=== PATIENT | female | born 1955 | race African-American/Black ===

== ENCOUNTER 2019-05-08 13:56 | Observation (INO) | payer OTHER ==
--- NOTE | 2019-05-08 14:14 | PDOC ---
History of Present Illness - General Chief Complaint: Chest Pain Stated Complaint: CHEST PAIN Time Seen by Provider: 05/08/19 14:06 - History of Present Illness Initial Comments: 05/08/19 14:25 63 yo F PMH HTN, HLD, triscuspid valve replacement in 2013 s/p [employer] AICD in 2014 on warfarin, h/o DVT while smoking and on control , presenting with L sided chest pain. Reports first episode last night, sharp, intermittent, non-exertional, without N/V, SOB, diaphoresis, lasting minutes at a time. Has had 6 total episodes since last night, never had these before, which led her to come to the ED. Patient reports having her metoprolol recently increased after her device was interrogated and she was found to be having palpitations. Specifically denies SOB, N/V, abd pain, fevers/chills, constipation/diarrhea, FALL , leg swelling, palpitations, recent illness, sick contacts, or recent travel. Past History - Past Medical History Allergies/Adverse Reactions: Allergies Allergy/AdvReac Type Severity Reaction Status Date / Time No Known Drug Allergies Allergy Verified 05/08/19 14:11 Home Medications: Ambulatory Orders Amlodipine Besylate [Norvasc -] 5 mg PO DAILY 05/08/19 Aspirin [ASA -] 81 mg PO DAILY 05/08/19 Atorvastatin Ca [Lipitor] 10 mg PO HS 05/08/19 Furosemide 20 mg PO DAILY 05/08/19 Irbesartan 75 mg PO DAILY 05/08/19 Latanoprost 1 drop OP DAILY 05/08/19 Metoprolol Succinate [Toprol Xl] 150 mg PO DAILY 05/08/19 Warfarin Na [Coumadin] 7.5 mg PO HS 05/08/19 Anemia: No Asthma: No Cancer: No Cardiac Disorders: No CVA: No COPD: No CHF: No Dementia: No Diabetes: No GI Disorders: No Disorders: No HTN: No Hypercholesterolemia: No Liver Disease: No Seizures: No Thyroid Disease: No - Surgical History Abdominal Surgery: No Appendectomy: No Cardiac Surgery: No Cholecystectomy: No Lung Surgery: No Neurologic Surgery: No Orthopedic Surgery: No - Psycho Social/Smoking Cessation Hx Smoking Status: Yes Smoking History: Current every day smoker Have you smoked in the past 12 months: Yes Number of Cigarettes Smoked Daily: 5 Hx Alcohol Use: No Drug/Substance Use Hx: No Substance Use Type: None Hx Substance Use Treatment: No Review of Systems - Review of Systems Able to Perform ROS?: Yes Comments:: 05/08/19 14:54 GENERAL/CONSTITUTIONAL: No fever or chills. No weakness. HEAD, EYES, EARS, NOSE AND THROAT: No change in vision. No ear pain or discharge. No sore throat. CARDIOVASCULAR: L sided chest pain, no shortness of breath. RESPIRATORY: No cough, wheezing, or hemoptysis. GASTROINTESTINAL: No nausea, vomiting, diarrhea or constipation. GENITOURINARY: No dysuria, frequency, or change in urination. MUSCULOSKELETAL: No joint or muscle swelling or pain. No neck or back pain. SKIN: No rash NEUROLOGIC: No headache, vertigo, loss of consciousness, or change in strength/ sensation. ENDOCRINE: No increased thirst. No abnormal weight change. HEMATOLOGIC/LYMPHATIC: No anemia, easy bleeding, or history of blood clots. ALLERGIC/IMMUNOLOGIC: No hives or skin allergy *Physical Exam - Physical Exam Comments: 05/08/19 14:58 Gen: well-developed, well-nourished, NAD Neuro: AAOX4, CN II-XII intact, FTN intact, EOMI, PERRLA, 5/5 strength, SILT HEENT: atraumatic, normocephalic Neck: trachea midline, supple CV: regular rate, regular rhythm, no murmurs, rubs, or gallops Pulm: CTA b/l, no wheezing Abd: soft, non-distended, non-tender MSK: full ROM, intact pulses Extr: no edema, no deformities Skin: warm, dry Heart Score/ECG Review - History History: Slightly suspicious - Electrocardiogram EKG: Non specific repolarization disturbance - Age Age: 45-65 - Risk Factors Risk Factors Heart Score: Yes Hx Hypercholesterolemia, Yes Hx Hypertension, Yes Hx Obesity Based on the list above the patient has:: >/=3 risk factors or Hx atherosclerotic disease - Troponin Troponin: </= normal limit - Score Heart Score - Total: 4 ED Treatment Course - LABORATORY CBC & Chemistry Diagram: 05/09/19 08:57 05/09/19 08:57 Medical Decision Making - Medical Decision Making 05/08/19 14:12 Concern for ACS vs atypical chest pain. - CBC, CMP, EKG, CXR, trop - coags - reassess EKG normal sinus at 64 bpm with sinus arrhythmia, poor baseline quality, LVH 05/08/19 15:02 CXR: slight prominence of the right hilum with some atelectasis or horizontal fissure thickening 05/08/19 16:33 Elevated trop to 0.07. Heart score of 4, will admit to tele obs. Discharge - Discharge Information Problems reviewed: Yes Clinical Impression/Diagnosis: Chest pain, Elevated troponin I level - Follow up/Referral - Patient Discharge Instructions - Post Discharge Activity
[2019-05-08 15:35] LABS: BASO % 1.2 % (0-2.0); EOS % 0.4 % (0-4.5); HEMATOCRIT 44.7 % (32.4-45.2); HEMOGLOBIN 14.8 GM/dL (10.7-15.3); LYMPH % 33.1 % (8-40); MCH 31.3 pg (25.7-33.7); MEAN CELL VOLUME 94.7 fl (80-96); MEAN PLT VOLUME 6.9 fl (7.5-11.1); MONO % 8.1 % (3.8-10.2); NEUT % 57.2 % (42.8-82.8); PLATELET COUNT 418 K/MM3 (134-434); RBC 4.72 M/mm3 (3.60-5.2); RDW 13.8 % (11.6-15.6)
--- NOTE | 2019-05-08 15:43 | PDOC ---
Documentation entered by Benji Major SCRIBE, acting as scribe for Arelis Nguyen MD. Arelis Nguyen MD: This documentation has been prepared by the Moriah peterson Xhesika, SCRIBE, under my direction and personally reviewed by me in its entirety. I confirm that the documentation accurately reflects all work, treatment, procedures, and medical decision making performed by me. Attending Attestation - Resident Resident Name: Kimberly Louis - ED Attending Attestation I have performed the following: I have examined & evaluated the patient, The case was reviewed & discussed with the resident, I agree w/resident's findings & plan, Exceptions are as noted - HPI HPI: 05/08/19 14:40 The patient is a 63 year old female with a significant PMH of HTN, HLD, and tricuspid valve replacement (2013), pacemaker (2014), bronchitis (on chronic inhalers) who presents to the emergency department for sudden onset chest pain while sitting on the couch. Pt describes the pain as sharp, intermittent, located under her left breast, lasting a couple of minutes before resolving. Pt denies any alleviating or aggravating factors. Patient denies leg swelling, shortness of breath, headache and dizziness. Denies fever, chills, cough, nausea , vomiting, diarrhea and constipation. Denies dysuria, frequency, urgency and hematuria. Allergies: NKDA - Physicial Exam PE: 05/08/19 15:38 Awake alert no acute distress lungs are clear bilaterally heart is regular without murmurs rubs or gallops abdomen is soft nontender extremities are warm well perfused there is no noted peripheral edema or calf tenderness patient has 2+ symmetric distal pulses neurologically she is awake alert and oriented x3 - Medical Decision Making 05/08/19 15:38 [id number] female history of hypertension valve replacement previous DVT PE many years ago while on control here today complaining of left-sided chest pressure. Patient describes as a tightness under her left breast no radiation no associated shortness of breath no nausea vomiting no diaphoresis happened while at rest relaxing started this a.m. no history of similar pain does have a food counter attendant Dr. Maldonado doc who she last saw few months ago. Patient has had a stress test several years ago which was reportedly Patient has a normal exam Differential includes ACS, infection, patient has a history of previous DVT PE however was provoked while smoking on control many many years ago she is also currently anticoagulated with an artificial valve plan CBC CMP troponin patient will likely require admission due to her multiple risk factors Heart Score/ECG Review #1 ECG reviewed & interpreted by me at: 15:43 General ECG Interpretation: Sinus Rhythm, Normal Rate, Normal Intervals, No acute ischemic changes (TWI III, AVF. left axis.) Compared to previous ECG there are: No significant change (comparison 09/20/11)
[2019-05-08 15:54] LABS: PROTHROMBIN TIME (PATIENT) 52.4 SEC (9.7-13.0)
[2019-05-08 15:56] LABS: ACTIVATED PTT 44.2 SECONDS (25.2-36.5)
[2019-05-08] MEDS ORDERED: ASPIRIN 325 MG TABLET PO ONE (16:32)
[2019-05-08 16:34] LABS: ALBUMIN 3.9 g/dl (3.4-5.0); BILIRUBIN,TOTAL 0.6 mg/dL (0.2-1); BLOOD UREA NITROGEN 6.7 mg/dL (7-18); CREATININE 0.7 mg/dL (0.55-1.3); MAGNESIUM 1.8 mg/dL (1.8-2.4); N-TERMINAL BNP 214.4 pg/ml (5-125); PHOSPHOROUS 2.7 mg/dL (2.5-4.9); POTASSIUM 3.3 mmol/L (3.5-5.1); TOT PROT 8.5 g/dl (6.4-8.2)
[2019-05-08] MEDS ORDERED: ASPIRIN 325 MG ENTERIC COATED TABLET (FP) ONE (16:52)
[2019-05-08] MEDS ORDERED: POTASSIUM CHLORIDE TABS 20 MEQ TABLET.ER (FP) PO ONE ×4 (17:01→17:50)
[2019-05-08 17:39] LABS: INR 4.37 (0.83-1.09)
--- NOTE | 2019-05-08 17:45 | HP ---
CHIEF COMPLAINT: left sided chest pain, non radiating PCP: HISTORY OF PRESENT ILLNESS: Patient is a 63 year old female with a past medical history of hypertension, hyperlipidemia, triscuspid valve replacement in 2013 s/p [employer] AICD in 2014 and atrial fibrillation? (reports she was put on warfarin for palpitations, but also has hx of DVT) and COPD. Patient presents to the ED with c/o of chest pain, left sided under her left breast, non radiating. She has no shortness of breath or dizziness, no jaw pain or any other discomfort. Chest pain started last night, continued until this morning which concerned her. She had a total of six episodes of chest pain "squeezing" and has never had this happen to her before. She follows with her private collar tacker who also monitors her INR. On admission her INR was 4.3 and she had a recent increase of warfarin from 5mg to 7.5mg due to low inr. She has her INR monitored weekly. ER course was notable for: (1) elevated INR 4.37 (took coumadin 7.5mg this morning. will hold coumadin) (2) trop 0.07, will continue to trend (3) potassium 3.3, repleted in the ED (4) EKG NSR at 64 bpm with sinus arrhythmia Recent Travel: none PAST MEDICAL/SURGICAL HISTORY: hypertension, hyperlipidemia, triscuspid valve replacement in 2013 s/p [employer] AICD in 2014 and atrial fibrillation ( on warfarin) and COPD. Social History: Smoking: quit 5 years ago Alcohol: socially Drugs: none reported Allergies No Known Drug Allergies Allergy (Verified 05/08/19 14:11) HOME MEDICATIONS: Home Medications Medication Instructions Recorded Amlodipine Besylate [Norvasc -] 5 mg PO DAILY 05/08/19 Aspirin [ASA -] 81 mg PO DAILY 05/08/19 Atorvastatin Ca [Lipitor] 10 mg PO HS 05/08/19 Furosemide 20 mg PO DAILY 05/08/19 Irbesartan 75 mg PO DAILY 05/08/19 Latanoprost 1 drop OP DAILY 05/08/19 Metoprolol Succinate [Toprol Xl] 150 mg PO DAILY 05/08/19 Warfarin Na [Coumadin] 7.5 mg PO HS 05/08/19 PHYSICAL EXAMINATION Vital Signs - 24 hr 05/08/19 05/08/19 05/08/19 14:12 15:29 17:18 Temperature 98.4 F Pulse Rate 67 Pulse Rate [ 67 Radial] Respiratory 20 20 Rate Blood Pressure 144/88 Blood Pressure 144/71 [Left Arm] O2 Sat by Pulse 96 97 96 Oximetry (%) GENERAL: Awake, alert, and fully oriented, in no acute distress. HEAD: Normal with no signs of trauma. EYES: Pupils equal, round and reactive to light, extraocular movements intact, sclera anicteric, conjunctiva clear. No lid lag. EARS, NOSE, THROAT: Ears normal, nares patent, oropharynx clear without exudates. Moist mucous membranes. NECK: Normal range of motion, supple without lymphadenopathy, JVD, or masses. LUNGS: Breath sounds equal, clear to auscultation bilaterally. No wheezes, and no crackles. No accessory muscle use. HEART: Regular rate and rhythm, normal S1 and S2 without murmur, rub or gallop. ABDOMEN: Soft, nontender, not distended, normoactive bowel sounds, no guarding, no rebound, no masses. No hepatomegaly or splenomegaly. MUSCULOSKELETAL: Normal range of motion at all joints. No bony deformities or tenderness. No CVA tenderness. UPPER EXTREMITIES: No peripheral edema. LOWER EXTREMITIES: No peripheral edema. NEUROLOGICAL: Cranial nerves II-XII intact. Normal speech. Normal gait. PSYCHIATRIC: Cooperative. Good eye contact. Appropriate mood and affect. SKIN: Warm, dry, normal turgor, no rashes or lesions noted, normal capillary refill. Laboratory Results - last 24 hr 05/08/19 05/08/19 05/08/19 15:20 15:20 15:20 WBC 7.0 RBC 4.72 Hgb 14.8 Hct 44.7 D MCV 94.7 MCH 31.3 MCHC 33.0 RDW 13.8 Plt Count 418 MPV 6.9 L Absolute Neuts (auto) 4.0 Neutrophils % 57.2 D Lymphocytes % 33.1 D Monocytes % 8.1 D Eosinophils % 0.4 D Basophils % 1.2 Nucleated RBC % 0 PT with INR INR PTT (Actin FS) Sodium 142 Potassium 3.3 L Chloride 105 Carbon Dioxide 32 Anion Gap 5 L BUN 6.7 L Creatinine 0.7 Est GFR (CKD-EPI)AfAm 108.38 Est GFR (CKD-EPI)NonAf 93.51 Random Glucose 104 Calcium 9.0 Phosphorus 2.7 Magnesium 1.8 Total Bilirubin 0.6 AST 20 ALT 31 Alkaline Phosphatase 100 Creatine Kinase 68 Troponin I 0.07 H B-Natriuretic Peptide 214.4 H Total Protein 8.5 H Albumin 3.9 05/08/19 17:30 WBC RBC Hgb Hct MCV MCH MCHC RDW Plt Count MPV Absolute Neuts (auto) Neutrophils % Lymphocytes % Monocytes % Eosinophils % Basophils % Nucleated RBC % PT with INR 52.40 H INR 4.37 H* PTT (Actin FS) 44.2 H Sodium Potassium Chloride Carbon Dioxide Anion Gap BUN Creatinine Est GFR (CKD-EPI)AfAm Est GFR (CKD-EPI)NonAf Random Glucose Calcium Phosphorus Magnesium Total Bilirubin AST ALT Alkaline Phosphatase Creatine Kinase Troponin I B-Natriuretic Peptide Total Protein Albumin ASSESSMENT/PLAN: Family Medical History Family History: Denies Problem List - Problem (1) Chest pain Assessment/Plan: chest pain overnight and this morning, none presently. ambulating in room w/o any discomfort significant cardiac history with ppm that was interrogated a few weeks ago trend troponins, first 0.07 monitor on tele cardiology consulted follows with Dr. Villa (collar tacker) Code(s): R07.9 - CHEST PAIN, UNSPECIFIED (2) Elevated INR Assessment/Plan: hold comadin for elevated inr. took coumadin 7.5mg this morning repeat inr in a.m. Code(s): R79.1 - ABNORMAL COAGULATION PROFILE (3) Elevated troponin I level Assessment/Plan: continue to trend Code(s): R79.89 - OTHER SPECIFIED ABNORMAL FINDINGS OF BLOOD CHEMISTRY (4) COPD (chronic obstructive pulmonary disease) Assessment/Plan: on home inhalers, but does not use it daily Code(s): J44.9 - CHRONIC OBSTRUCTIVE PULMONARY DISEASE, UNSPECIFIED (5) Prophylactic measure Assessment/Plan: fen po adequate monitor electrolyes low salt diet hold coumadin Code(s): Z29.9 - ENCOUNTER FOR PROPHYLACTIC MEASURES, UNSPECIFIED Visit type - Emergency Visit Emergency Visit: Yes ED Registration Date: 05/08/19 Care time: The patient presented to the Emergency Department on the above date and was hospitalized for further evaluation of their emergent condition. - New Patient This patient is new to me today: Yes Date on this admission: 05/08/19 - Critical Care Critical Care patient: No
[2019-05-08] MEDS ORDERED: ACETAMINOPHEN 325 MG TABLET (FP) PO PRN (19:27)
[2019-05-08 20:29] VITALS: BMI 30.6
[2019-05-08] MEDS ORDERED: ATORVASTATIN CA 10 MG TABLET (FP) PO SCH (22:00)
[2019-05-09 09:21] LABS: BASO % 0.7 % (0-2.0); HEMATOCRIT 39.5 % (32.4-45.2); HEMOGLOBIN 13.5 GM/dL (10.7-15.3); LYMPH % 45.2 % (8-40); MCH 31.9 pg (25.7-33.7); MCHC 34.2 g/dl (32.0-36.0); MEAN CELL VOLUME 93.3 fl (80-96); MEAN PLT VOLUME 6.8 fl (7.5-11.1); MONO % 6.8 % (3.8-10.2); NEUT % 46.3 % (42.8-82.8); PLATELET COUNT 371 K/MM3 (134-434); RBC 4.23 M/mm3 (3.60-5.2); WHITE BLOOD COUNT 6.9 K/mm3 (4.0-10.0)
[2019-05-09 09:31] LABS: PROTHROMBIN TIME (PATIENT) 61.7 SEC (9.7-13.0)
[2019-05-09] MEDS ORDERED: amLODIPine BESYLATE 5 MG TABLET (FP) PO SCH (10:00)
[2019-05-09] MEDS ORDERED: LOSARTAN POTASSIUM 25 MG TABLET PO SCH (10:00)
[2019-05-09] MEDS ORDERED: METOPROLOL SUCCINATE 100 MG, METOPROLOL SUCCINATE 50 MG PO SCH (10:00)
[2019-05-09] MEDS ORDERED: FUROSEMIDE 20 MG TABLET (FP) PO SCH (10:00)
[2019-05-09] MEDS ORDERED: ASPIRIN 81 MG CHEWABLE TABLETS PO SCH (10:00)
[2019-05-09 10:11] LABS: ALBUMIN 3.3 g/dl (3.4-5.0); BILIRUBIN,TOTAL 0.4 mg/dL (0.2-1); CALCIUM 8.9 mg/dL (8.5-10.1); CREATININE 0.6 mg/dL (0.55-1.3); POTASSIUM 3.5 mmol/L (3.5-5.1); TOT PROT 7.4 g/dl (6.4-8.2)
[2019-05-09 10:13] LABS: INR 5.14 (0.83-1.09)
--- NOTE | 2019-05-09 12:39 | EKG ---
Test Reason : Blood Pressure : / mmHG Vent. Rate : 064 BPM Atrial Rate : 064 BPM P-R Int : 122 ms QRS Dur : 098 ms QT Int : 400 ms P-R-T Axes : 041 -27 -19 degrees QTc Int : 412 ms POOR DATA QUALITY, INTERPRETATION MAY BE ADVERSELY AFFECTED NORMAL SINUS RHYTHM WITH SINUS ARRHYTHMIA POSSIBLE LEFT ATRIAL ENLARGEMENT LEFT VENTRICULAR HYPERTROPHY NONSPECIFIC ST AND T WAVE ABNORMALITY ABNORMAL ECG WHEN COMPARED WITH ECG OF 20-SEP-2011 00:32, MINIMAL CRITERIA FOR SEPTAL INFARCT ARE NO LONGER PRESENT NONSPECIFIC T WAVE ABNORMALITY, WORSE IN ANTEROLATERAL LEADS QT HAS SHORTENED Confirmed by ALIVIA RAGLAND MD ([id number]) on 05/09/2019 12:39:23 PM Referred By: Confirmed By:ALIVIA RAGLAND MD
--- NOTE | 2019-05-09 13:22 | CON.CARD ---
Consult Consult Specialty:: cardiology Referred by:: Melody Reason for Consultation:: chest pain - History of Present Illness Chief Complaint: chest pain History of Present Illness: The patient is a 63-year-old femal , ypertension,hyperlipidemia,dVT on Coumadin , status post tricuspid valve replacement 2014 status post ICD implantation, now admitted with chest pains at rest. The patient described several episodesof the pulsating discomfort in her chest.Symptoms lasted one to 2 seconds. They resolved spontaneously. The patient reports no such symptoms while walking. She is currently comfortable and symptom free. The patient stated that prior to her surgeryin 2013, cardiac catheterization revealed no coronary artery disease. - History Source History Provided By: Patient Limitations to Obtaining History: No Limitations - Past Medical History Cardio/Vascular: Yes: Deep Vein Thrombosis, HTN ...: No - Alcohol/Substance Use Hx Alcohol Use: No - Smoking History Smoking history: Current every day smoker Have you smoked in the past 12 months: Yes Aproximately how many cigarettes per day: 5 If you are a former smoker, when did you quit?: 2013 Home Medications - Allergies Allergies/Adverse Reactions: Allergies Allergy/AdvReac Type Severity Reaction Status Date / Time No Known Drug Allergies Allergy Verified 05/08/19 14:11 - Home Medications Home Medications: Ambulatory Orders Amlodipine Besylate [Norvasc -] 5 mg PO DAILY 05/08/19 Aspirin [ASA -] 81 mg PO DAILY 05/08/19 Atorvastatin Ca [Lipitor] 10 mg PO HS 05/08/19 Furosemide 20 mg PO DAILY 05/08/19 Irbesartan 75 mg PO DAILY 05/08/19 Latanoprost 1 drop OP DAILY 05/08/19 Metoprolol Succinate [Toprol Xl] 150 mg PO DAILY 05/08/19 Warfarin Na [Coumadin] 7.5 mg PO HS 05/08/19 Review of Systems - Review of Systems Constitutional: reports: No Symptoms Eyes: reports: No Symptoms HENT: reports: No Symptoms Neck: reports: No Symptoms Cardiovascular: reports: Chest Pain Respiratory: reports: No Symptoms Gastrointestinal: reports: No Symptoms Genitourinary: reports: No Symptoms Breasts: reports: No Symptoms Reported Musculoskeletal: reports: Muscle Cramps Integumentary: reports: No Symptoms Neurological: reports: No Symptoms Endocrine: reports: No Symptoms Hematology/Lymphatic: reports: No Symptoms Psychiatric: reports: No Symptoms Vital Signs: Vital Signs Temperature 98 F 05/09/19 09:16 Pulse Rate 60 05/09/19 09:16 Respiratory Rate 20 05/09/19 09:16 Blood Pressure 126/79 05/09/19 09:16 O2 Sat by Pulse Oximetry (%) 98 05/09/19 10:00 Constitutional: Yes: Well Nourished, No Distress, Calm Eyes: Yes: WNL, Conjunctiva Clear, EOM Intact HENT: Yes: WNL, Atraumatic, Normocephalic Neck: Yes: WNL, Supple, Trachea Midline Respiratory: Yes: WNL, Regular, CTA Bilaterally Gastrointestinal: Yes: WNL, Normal Bowel Sounds, Soft Renal/: Yes: WNL Cardiovascular: Yes: WNL, Regular Rate and Rhythm JVD: No Carotid Bruit: No PMI: Non-Displaced Heart Sounds: Yes: S1, S2 Murmur: Yes: Systolic Murmur, Grade 2 Musculoskeletal: Yes: Muscle Pain Extremities: Yes: WNL Edema: No Peripheral Pulses WNL: Yes Peripheral Pulses: 2+ Left Carotid, 2+ Right Carotid, 2+ Left Femoral, 2+ Right Femoral, 2+ Left Popliteal, 2+ Right Popliteal, 2+ Left Doralis Pedis, 2+ Right Dorsalis Pedis Integumentary: Yes: WNL Neurological: Yes: WNL, Alert, Oriented ...Motor Strength: WNL Psychiatric: Yes: WNL, Alert, Oriented - Other Data Labs, Other Data: CBC, BMP 05/09/19 08:57 05/09/19 08:57 INR, PTT INR 5.14 (0.83-1.09) H* 05/09/19 08:57 Troponin, BNP 05/08/19 05/08/19 05/08/19 15:20 15:20 21:45 Troponin I 0.07 H 0.06 H B-Natriuretic Peptide 214.4 H 05/09/19 02:11 Troponin I 0.08 H B-Natriuretic Peptide Troponin, BNP 05/08/19 05/08/19 05/08/19 15:20 15:20 21:45 Troponin I 0.07 H 0.06 H B-Natriuretic Peptide 214.4 H 05/09/19 02:11 Troponin I 0.08 H B-Natriuretic Peptide Assessment/Plan The patient is a 63-year-old femal , ypertension,hyperlipidemia,dVT on Coumadin , status post tricuspid valve replacement 2013 status post ICD implantation, now admitted with chest pains at rest. The patient described several episodesof the pulsating discomfort in her chest.Symptoms lasted one to 2 seconds. They resolved spontaneously. The patient reports no such symptoms while walking. She is currently comfortable and symptom free. The patient stated that prior to her surgeryin 2013, cardiac catheterization revealed no coronary artery disease. There is no evidence of ischemia nor acute coronary syndrome.noncardiac chest pains. Most likely of musculoskeletal origin. The patient is in sinus rhythm. There are no acute ECG changes. There is no need for further cardiac monitoring at this point. No need for further cardiac workup at this point. Please arrange for an outpatient appointment with her own sales compensation analyst. please do not hesitate to call us PRN.
[2019-05-09 14:23] VITALS: BP 129/91; PULSE 74; TEMP 98.1
--- NOTE | 2019-05-09 15:16 | DS ---
Physical Exam: SUBJECTIVE: Patient seen and examined OBJECTIVE: Patient is a 63 year old female with a past medical history of hypertension, hyperlipidemia, triscuspid valve replacement in 2014 s/p [employer] in 2015 and atrial fibrillation? (reports she was put on warfarin for palpitations, but also has hx of DVT) and COPD. Patient presents to the ED with c/o of chest pain, left sided under her left breast, non radiating. She has no shortness of breath or dizziness, no jaw pain or any other discomfort. Chest pain started yesterday. She had a total of six episodes of chest pain "squeezing" and has never had this happen to her before. She follows with her private environmental studies department chair who also monitors her INR. On admission her INR was 4.3 and she had a recent increase of warfarin from 5mg to 7.5mg due to low inr. She took a dose of coumadin 7.5mg earlier in the day before coming to the hospital. She has her INR monitored weekly and is scheduled to have it checked tomorrow. her INR is 5. and she is instructed to not take any more coumadin. She has a follow up appointment with her environmental studies department chair tomorrow for an INR follow up and when to resume the coumadin. No signs of bleeding, vitals stable. She has good follow up and will see her environmental studies department chair tomorrow, therefore will discharge her home with cardiology follow up. Period Temp Pulse Resp BP Sys/Quach Pulse Ox Last 24 Hr 97.6 F-98.1 F 60-74 18-20 114-145/64-91 96-98 PHYSICAL EXAM GENERAL: The patient is awake, alert, and fully oriented, in no acute distress. HEAD: Normal with no signs of trauma. EYES: PERRL, extraocular movements intact, sclera anicteric, conjunctiva clear. ENT: Ears normal, nares patent, oropharynx clear without exudates, moist mucous membranes. NECK: Trachea midline, full range of motion, supple. LUNGS: Breath sounds equal, clear to auscultation bilaterally, no wheezes, no crackles, no accessory muscle use. HEART: Regular rate and rhythm, S1, S2 without murmur, rub or gallop. ABDOMEN: Soft, nontender, nondistended, normoactive bowel sounds, no guarding, no rebound, no hepatosplenomegaly, no masses. EXTREMITIES: 2+ pulses, warm, well-perfused, no edema. NEUROLOGICAL: Cranial nerves II through XII grossly intact. Normal speech, gait not observed. PSYCH: Normal mood, normal affect. SKIN: Warm, dry, normal turgor, no rashes or lesions noted. LABS Laboratory Results - last 24 hr 05/08/19 05/08/19 05/08/19 15:20 15:20 15:20 WBC 7.0 RBC 4.72 Hgb 14.8 Hct 44.7 D MCV 94.7 MCH 31.3 MCHC 33.0 RDW 13.8 Plt Count 418 MPV 6.9 L Absolute Neuts (auto) 4.0 Neutrophils % 57.2 D Lymphocytes % 33.1 D Monocytes % 8.1 D Eosinophils % 0.4 D Basophils % 1.2 Nucleated RBC % 0 PT with INR INR PTT (Actin FS) Sodium 142 Potassium 3.3 L Chloride 105 Carbon Dioxide 32 Anion Gap 5 L BUN 6.7 L Creatinine 0.7 Est GFR (CKD-EPI)AfAm 108.38 Est GFR (CKD-EPI)NonAf 93.51 Random Glucose 104 Calcium 9.0 Phosphorus 2.7 Magnesium 1.8 Total Bilirubin 0.6 AST 20 ALT 31 Alkaline Phosphatase 100 Creatine Kinase 68 Troponin I 0.07 H B-Natriuretic Peptide 214.4 H Total Protein 8.5 H Albumin 3.9 05/08/19 05/08/19 05/09/19 17:30 21:45 02:11 WBC RBC Hgb Hct MCV MCH MCHC RDW Plt Count MPV Absolute Neuts (auto) Neutrophils % Lymphocytes % Monocytes % Eosinophils % Basophils % Nucleated RBC % PT with INR 52.40 H INR 4.37 H* PTT (Actin FS) 44.2 H Sodium Potassium Chloride Carbon Dioxide Anion Gap BUN Creatinine Est GFR (CKD-EPI)AfAm Est GFR (CKD-EPI)NonAf Random Glucose Calcium Phosphorus Magnesium Total Bilirubin AST ALT Alkaline Phosphatase Creatine Kinase Troponin I 0.06 H 0.08 H B-Natriuretic Peptide Total Protein Albumin 05/09/19 05/09/19 05/09/19 08:57 08:57 08:57 WBC 6.9 RBC 4.23 Hgb 13.5 Hct 39.5 MCV 93.3 MCH 31.9 MCHC 34.2 RDW 14.0 Plt Count 371 MPV 6.8 L Absolute Neuts (auto) 3.2 Neutrophils % 46.3 Lymphocytes % 45.2 H D Monocytes % 6.8 Eosinophils % 1.0 D Basophils % 0.7 Nucleated RBC % 0 PT with INR 61.70 H INR 5.14 H* PTT (Actin FS) Sodium 140 Potassium 3.5 Chloride 107 Carbon Dioxide 27 Anion Gap 6 L BUN 9.0 Creatinine 0.6 Est GFR (CKD-EPI)AfAm 114.02 Est GFR (CKD-EPI)NonAf 98.38 Random Glucose 124 H Calcium 8.9 Phosphorus Magnesium Total Bilirubin 0.4 AST 23 ALT 28 Alkaline Phosphatase 86 Creatine Kinase Troponin I B-Natriuretic Peptide Total Protein 7.4 Albumin 3.3 L HOSPITAL COURSE: Date of Admission:05/08/19 Date of Discharge: 05/09/19 Minutes to complete discharge: 45 Discharge Summary Problems reviewed: Yes Reason For Visit: ELEVATED TROPONIN I LEVEL Current Active Problems COPD (chronic obstructive pulmonary disease) (Acute) Chest pain (Acute) Elevated INR (Acute) Elevated troponin I level (Acute) Prophylactic measure (Acute) Condition: Improved - Instructions Diet, Activity, Other Instructions: Mrs Singh: Your cardiac workup is negative. Please see your environmental studies department chair tomorrow and have your INR repeated. DO NOT TAKE ANY MORE COUMADIN YOUR INR IS ABOVE GOAL. Your INR is 5 which puts you at risk for bleeding. HOLD coumadin until you see your environmental studies department chair tomorrow and discuss lowering dose of Coumadin. Thank you for allowing us to care for you. Referrals: ON STAFF,NOT [Primary Care Provider] - Disposition: HOME - Home Medications Comprehensive Discharge Medication List: Ambulatory Orders Amlodipine Besylate [Norvasc -] 5 mg PO DAILY 05/08/19 Aspirin [ASA -] 81 mg PO DAILY 05/08/19 Atorvastatin Ca [Lipitor] 10 mg PO HS 05/08/19 Furosemide 20 mg PO DAILY 05/08/19 Irbesartan 75 mg PO DAILY 05/08/19 Latanoprost 1 drop OP DAILY 05/08/19 Metoprolol Succinate [Toprol XL -] 150 mg PO DAILY tab.sr.24h 05/09/19 Problem List - Problems (1) Chest pain Assessment/Plan: resolved chest pain, cardiac workup negative cleared by cardiology for dc home with cardiology follow up Code(s): R07.9 - CHEST PAIN, UNSPECIFIED (2) Elevated INR Assessment/Plan: inr elevated 4.5 on day of admission and she had just taken coumadin 7.5mg on morning of admission. she will have her inr checked tomorrow with her environmental studies department chair taught patient to monitor for signs of bleeding and since she has good outpatient follow up, will d/c her to her private environmental studies department chair who will instruct her when to resume coumadin. Code(s): R79.1 - ABNORMAL COAGULATION PROFILE (3) Elevated troponin I level Assessment/Plan: continue to trend Code(s): R79.89 - OTHER SPECIFIED ABNORMAL FINDINGS OF BLOOD CHEMISTRY (4) COPD (chronic obstructive pulmonary disease) Assessment/Plan: on home inhalers, but does not use it daily Code(s): J44.9 - CHRONIC OBSTRUCTIVE PULMONARY DISEASE, UNSPECIFIED (5) Prophylactic measure Assessment/Plan: discharge home. follow up with Dr. Villa (environmental studies department chair) tomorrow Code(s): Z29.9 - ENCOUNTER FOR PROPHYLACTIC MEASURES, UNSPECIFIED This patient is new to me today: No Emergency Visit: Yes ED Registration Date: 05/08/19 Care time: The patient presented to the Emergency Department on the above date and was hospitalized for further evaluation of their emergent condition. Critical Care patient: No - Discharge Referral Referred to [facility] No
== END 2019-05-09 15:23 | disposition home or self-care (01) ==
LOC: JER 13:56 → JERBED 16:04 → J4S 18:18
PROVIDERS: ADMIT Hospitalist; ATTEND Nurse Practitioner Family
DX: R07.89 Other chest pain (principal); R77.8 Other specified abnormalities of plasma proteins; I10 Essential (primary) hypertension; E78.5 Hyperlipidemia, unspecified; F17.210 Nicotine dependence, cigarettes, uncomplicated; R79.1 Abnormal coagulation profile; J44.9 Chronic obstructive pulmonary disease, unspecified; E66.9 Obesity, unspecified; Z68.30 Body mass index [BMI] 30.0-30.9, adult; Z29.8 Encounter for other specified prophylactic measures; Z86.718 Personal history of other venous thrombosis and embolism; Z79.01 Long term (current) use of anticoagulants; Z95.810 Presence of automatic (implantable) cardiac defibrillator; Z95.2 Presence of prosthetic heart valve; Z79.82 Long term (current) use of aspirin; Z98.61 Coronary angioplasty status
CPT/HCPCS: 36415; 71045-TC-FY; 76604; 80053; 82550; 83735; 83880; 84100; 84484; 85025; 85610; 85730; 93005; 93010; 93308; 99285-25; G0378

== ENCOUNTER 2020-06-17 17:57 | Inpatient (IN) | payer OTHER ==
[2020-06-17 19:30] VITALS: BMI 28.1
[2020-06-17] MEDS ORDERED: ONDANSETRON 4 MG/2 ML VIAL IVPB ONE (19:52)
[2020-06-17] MEDS ORDERED: ONDANSETRON 4 MG/2 ML VIAL ONE (20:35)
[2020-06-17 21:05] LABS: BASO % 0.4 % (0-2.0); EOS % 0.3 % (0-4.5); HEMATOCRIT 43.9 % (32.4-45.2); HEMOGLOBIN 14.7 GM/dL (10.7-15.3); LYMPH % 10.8 % (8-40); MCH 31.3 pg (25.7-33.7); MCHC 33.5 g/dl (32.0-36.0); MEAN CELL VOLUME 93.2 fl (80-96); MEAN PLT VOLUME 7.7 fl (7.5-11.1); MONO % 5.3 % (3.8-10.2); NEUT % 83.2 % (42.8-82.8); PLATELET COUNT 385 K/MM3 (134-434); RBC 4.71 M/mm3 (3.60-5.2); RDW 15.9 % (11.6-15.6); WHITE BLOOD COUNT 10.9 K/mm3 (4.0-10.0)
[2020-06-17 21:13] LABS: CHLORIDE 102 mmol/L (98-107); SODIUM 133 mmol/L (136-145)
[2020-06-17 21:16] LABS: CALCIUM 8.8 mg/dL (8.5-10.1)
[2020-06-17 21:17] LABS: ALBUMIN 3.7 g/dl (3.4-5.0); BLOOD UREA NITROGEN 17.6 mg/dL (7-18); CO2 29 mmol/L (21-32); GLUCOSE,RANDOM 177 mg/dL (74-106)
[2020-06-17 21:20] LABS: INR 1.9 (0.83-1.09); PROTHROMBIN TIME (PATIENT) 22.9 SEC (9.7-13.0); SGOT/AST 60 U/L (15-37)
[2020-06-17 21:21] LABS: BILIRUBIN,TOTAL 0.7 mg/dL (0.2-1)
[2020-06-17 21:23] LABS: ACTIVATED PTT 31.2 SECONDS (25.2-36.5); ALK PHOS 94 U/L (45-117)
[2020-06-17 21:25] LABS: N-TERMINAL BNP 106.2 pg/ml (5-125)
[2020-06-17 21:28] LABS: ANION GAP 2 MMOL/L (8-16); SGPT/ALT 29 U/L (13-61)
[2020-06-17] MEDS ORDERED: ENOXAPARIN NA (PORCINE) 80 MG/0.8 ML DISP.SYRIN SQ ONE ×2 (21:45→22:24)
[2020-06-17 23:07] LABS: ALBUMIN 3.7 g/dl (3.4-5.0); BLOOD UREA NITROGEN 16.7 mg/dL (7-18)
[2020-06-17 23:10] LABS: CREATININE 0.8 mg/dL (0.55-1.3)
[2020-06-17 23:11] LABS: BILIRUBIN,TOTAL 0.4 mg/dL (0.2-1); TOT PROT 9.1 g/dl (6.4-8.2)
[2020-06-18] MEDS: DEXTROSE 5%-NORMAL SALINE 1,000 ML IV SCH ×2 (03:51→03:54)
[2020-06-18 06:52] LABS: INR 2.14 (0.83-1.09); PROTHROMBIN TIME (PATIENT) 25.7 SEC (9.7-13.0)
[2020-06-18 07:05] LABS: BASO % 0.5 % (0-2.0); HEMATOCRIT 40.5 % (32.4-45.2); HEMOGLOBIN 13.4 GM/dL (10.7-15.3); MCH 30.9 pg (25.7-33.7); MCHC 33.2 g/dl (32.0-36.0); MEAN CELL VOLUME 93.1 fl (80-96); MEAN PLT VOLUME 7.3 fl (7.5-11.1); MONO % 5.3 % (3.8-10.2); NEUT % 72.2 % (42.8-82.8); PLATELET COUNT 361 K/MM3 (134-434); RBC 4.34 M/mm3 (3.60-5.2); RDW 15.3 % (11.6-15.6); WHITE BLOOD COUNT 10.3 K/mm3 (4.0-10.0)
[2020-06-18 07:06] LABS: CALCIUM 8.5 mg/dL (8.5-10.1)
[2020-06-18 07:07] LABS: ALBUMIN 3.4 g/dl (3.4-5.0); BLOOD UREA NITROGEN 13.2 mg/dL (7-18)
[2020-06-18 07:10] LABS: CREATININE 0.7 mg/dL (0.55-1.3)
[2020-06-18 07:12] LABS: BILIRUBIN,TOTAL 0.7 mg/dL (0.2-1); TOT PROT 8.4 g/dl (6.4-8.2)
[2020-06-18] MEDS ORDERED: ASPIRIN 81 MG CHEWABLE TABLETS PO SCH (10:00)
[2020-06-18] MEDS ORDERED: FUROSEMIDE 20 MG TABLET (FP) PO SCH (10:00)
[2020-06-18] MEDS ORDERED: amLODIPine BESYLATE 5 MG TABLET (FP) PO SCH (10:00)
[2020-06-18] MEDS ORDERED: LOSARTAN POTASSIUM 25 MG TABLET PO SCH (10:00)
[2020-06-18] MEDS ORDERED: amLODIPine BESYLATE 5 MG TABLET (FP) ONE (10:24)
[2020-06-18] MEDS ORDERED: ASPIRIN 81 MG CHEWABLE TABLETS ONE (10:24)
[2020-06-18 11:19] LABS: PH,URINE 5.5 (5.0-8.0); URINE APPEARANCE CLOUDY; URINE BILIRUBIN NEGATIVE (NEGATIVE); URINE COLOR YELLOW; URINE GLUCOSE (UA) NEGATIVE (NEGATIVE); URINE KETONE NEGATIVE (NEGATIVE); URINE LEUK ESTERASE NEGATIVE (NEGATIVE); URINE NITRITE NEGATIVE (NEGATIVE); URINE PROTEIN TRACE (NEGATIVE); URINE UROBILINOGEN 0.2 mg/dL (0.2-1.0)
[2020-06-18 11:29] LABS: PHENCYCLIDINE,URINE NEGATIVE ng/ml (CUTOFF=25); URINE BENZODIAZEPINES NEGATIVE ng/ml (CUTOFF=200)
[2020-06-18 11:30] LABS: METHADONE, UR NEGATIVE ng/ml (CUTOFF=300); URINE AMPHETAMINES NEGATIVE ng/ml (CUTOFF=500)
[2020-06-18 11:31] LABS: URINE BARBITURATES NEGATIVE ng/ml (CUTOFF=200)
[2020-06-18 11:39] LABS: OPIATES, URI NEGATIVE ng/ml (CUTOFF=300)
[2020-06-18 11:52] LABS: COCAINE, UR POSITIVE ng/ml (CUTOFF=300)
[2020-06-18 16:22] VITALS: BP 120/68; PULSE 64; TEMP 98.6
[2020-06-18] MEDS ORDERED: WARFARIN NA 5 MG TABLET PO SCH (18:00)
[2020-06-18] MEDS ORDERED: LATANOPROST 0.005% OPHTH SOLN 2.5ML BOTTLE OU SCH (22:00)
[2020-06-18] MEDS ORDERED: ATORVASTATIN CA 10 MG TABLET (FP) PO SCH (22:00)
== END 2020-06-18 16:30 | disposition home or self-care (01) | DRG 918 ==
LOC: JER 17:57 → JERBED 23:34 → OBSVTOIN 06-18 03:16 → JERBED 06-18 16:28
PROVIDERS: ADMIT Internal Medicine; ATTEND Student in an Organized Health Care Education/Training Program
DX: T40.5X1A Poisoning by cocaine, accidental (unintentional), initial encounter (principal); I50.22 Chronic systolic (congestive) heart failure; R55 Syncope and collapse; I11.0 Hypertensive heart disease with heart failure; Y92.89 Other specified places as the place of occurrence of the external cause; E78.5 Hyperlipidemia, unspecified; I48.91 Unspecified atrial fibrillation; F14.10 Cocaine abuse, uncomplicated; F17.210 Nicotine dependence, cigarettes, uncomplicated; Z95.0 Presence of cardiac pacemaker; E78.00 Pure hypercholesterolemia, unspecified; Z95.2 Presence of prosthetic heart valve; Z79.01 Long term (current) use of anticoagulants
CPT/HCPCS: 36415; 70450-TC; 71046-TC-FY; 72125-TC; 80053; 80307; 81003; 82728; 83615; 83880; 84484; 85025; 85379; 85610; 85730; 86140; 93005; 93010; 93306-TC; 99285-25; C9803; G0378; U0003

== ENCOUNTER 2023-01-03 05:53 | Day surgery (SDC) | payer OTHER ==
[2023-01-02 12:15] VITALS: BMI 29.9
[2023-01-03 11:13] VITALS: TEMP 98
[2023-01-03 11:41] VITALS: BP 121/80; PULSE 69; RESP 17
== END 2023-01-03 11:46 | disposition home or self-care (01) ==
LOC: JASU-ENDO 05:53
PROVIDERS: ATTEND Student in an Organized Health Care Education/Training Program
PROC: 0DBM8ZX Excision of Descending Colon, Via Natural or Artificial Opening Endoscopic, Diagnostic (ICD-10-PCS; 2023-01-03)
PROC: 0DBH8ZX Excision of Cecum, Via Natural or Artificial Opening Endoscopic, Diagnostic (ICD-10-PCS; principal; 2023-01-03 10:30)
DX: Z12.11 Encounter for screening for malignant neoplasm of colon (principal); D12.0 Benign neoplasm of cecum; K57.30 Diverticulosis of large intestine without perforation or abscess without bleeding
CPT/HCPCS: 88305-TC